=== PATIENT | male | born 1985 | race Caucasian/White ===

== ENCOUNTER 2020-12-03 03:50 | Emergency (ER) | payer OTHER ==
[2020-12-03] MEDS ORDERED: TETRACAINE 0.5% OPHTH DROPS 4 ML EACHEYE ONE (04:07)
--- NOTE | 2020-12-03 04:42 | ED Physician Documentation ---
PD HPI OPHTHO - Stated complaint Stated Complaint: CHEMICAL IN EYE - Chief complaint Chief Complaint: Heent - History obtained from History obtained from: Patient - Additional information Additional information: 35-year-old man presents with right ear irritation after working outdoors today, woodworking and also spraying his plants with citric acid organic pesticide. Patient initially had mild irritation and then went to bed, waking up with pain in the eyes and worsening irritation and redness/puffiness. Denies vision changes, other issues. Review of Systems Constitutional: denies: Fever Eyes: reports: Irritation. denies: Loss of vision Neurologic: denies: Headache PD PAST MEDICAL HISTORY - Past Medical History Past Medical History: Yes GI: GERD - Past Surgical History Past Surgical History: No - Present Medications Home Medications: Ambulatory Orders Medication Instructions Recorded Confirmed Ofloxacin 0.3% Ophth Drops 1 drops EACHEYE Q4H 7 Days #1 12/03/20 [Ocuflox 0.3% Ophth Drops] bottle Omeprazole Magnesium [Prilosec] 2.5 mg PO DAILY 12/03/20 12/03/20 - Allergies Allergies/Adverse Reactions: Allergies Allergy/AdvReac Type Severity Reaction Status Date / Time Penicillins Allergy Unknown Verified 12/03/20 04:00 - Social History Does the pt smoke?: No Smoking Status: Never smoker Does the pt drink ETOH?: No Does the pt have substance abuse?: No - Immunizations Immunizations are current?: Yes - POLST Patient has POLST: No PD ED PE NORMAL - Vitals Vital signs reviewed: Yes - General General: Alert and oriented X 3, No acute distress, Well developed/nourished - HEENT HEENT: Atraumatic, PERRL, EOMI, Other (mild BL conjunctival injection. corneal abrasion on fluorescein testing in 9 oclock position in both eyes. 20/15 BL. small particulate foreign body removed from R lower lid at palpebral fissure) - Neuro Neuro: Alert and oriented X 3 - Psych Psych: Normal mood, Normal affect Results - Vitals Vitals: Vital Signs - 24 hr 12/03/20 12/03/20 04:00 04:05 Temperature 37.1 C 37.1 C Heart Rate 79 79 Respiratory 16 16 Rate Blood Pressure 124/87 H 124/87 H O2 Saturation 100 100 Oxygen O2 Source Room air PD MEDICAL DECISION MAKING - ED course ED course: 35-year-old man presents with eye irritation, with foreign particle evident in the right eye and bilateral corneal abrasions.Antibiotic eyedrops prescribed. Return precautions given. Patient will follow up with his primary doctor. Departure - Departure Disposition: 01 Home, Self Care Clinical Impression: Foreign body in eye, Corneal abrasion, Eye irritation Condition: Good Instructions: ED Eye Injury Corneal Abrasion Prescriptions: Ofloxacin 0.3% Ophth Drops [Ocuflox 0.3% Ophth Drops] 1 drops EACHEYE Q4H 7 Days #1 bottle Comments: You were seen for a scratch in your eyes caused by a foreign particle. Make sure that you wear safety goggles while woodworking and out in your garden. Use your antibiotic eyedrops as prescribed and return to the emergency department if you do not have improvement or have any new or worsening symptoms. Follow-up with your primary doctor.
[2020-12-03 04:48] VITALS: BP 125/72
== END 2020-12-03 04:46 | disposition home or self-care (01) ==
LOC: ED 03:50
DX: S05.02XA Injury of conjunctiva and corneal abrasion without foreign body, left eye, initial encounter (principal); S05.01XA Injury of conjunctiva and corneal abrasion without foreign body, right eye, initial encounter; H02.812 Retained foreign body in right lower eyelid; X58.XXXA Exposure to other specified factors, initial encounter; Y93.H9 Activity, other involving exterior property and land maintenance, building and construction
CPT/HCPCS: 99282; 99283

== ENCOUNTER 2021-08-26 11:48 | Emergency (ER) | payer OTHER ==
[2021-08-26 12:01] VITALS: BP 126/81
--- NOTE | 2021-08-26 12:26 | ED Physician Documentation ---
PD HPI ABD PAIN - Stated complaint Stated Complaint: LEFT SIDE RIB PAIN - Chief complaint Chief Complaint: Back Pain - History obtained from History obtained from: Patient - Additional information Additional information: For a little over a week he has been dealing with left-sided back pain. Radiates from the left flank down to the superolateral left pelvic brim. Its worse with bending and twisting and worse when he raises his left arm over his head. There was no specific injury. He denies urinary complaints or blood in the urine. No radiation to the legs, no weakness, numbness, tingling of the legs or saddle anesthesia. No fevers. He has tried Tylenol without relief. He tries to avoid NSAIDs due to a gastric issue. Review of Systems Constitutional: denies: Fever, Chills Cardiac: denies: Chest pain / pressure, Palpitations Respiratory: denies: Dyspnea, Cough PD PAST MEDICAL HISTORY - Past Medical History GI: GERD - Past Surgical History Past Surgical History: No - Present Medications Home Medications: Ambulatory Orders Medication Instructions Recorded Confirmed Ofloxacin 0.3% Ophth Drops 1 drops EACHEYE Q4H 7 Days #1 12/03/20 [Ocuflox 0.3% Ophth Drops] bottle Omeprazole Magnesium [Prilosec] 2.5 mg PO DAILY 12/03/20 12/03/20 HYDROcod/ACETAM 5/325 [Hudson 5/325] 1 - 2 tab PO Q6H PRN #15 tablet 08/26/21 - Allergies Allergies/Adverse Reactions: Allergies Allergy/AdvReac Type Severity Reaction Status Date / Time Penicillins Allergy Unknown Verified 08/26/21 12:01 - Social History Does the pt smoke?: No Smoking Status: Never smoker Does the pt drink ETOH?: No Does the pt have substance abuse?: No - Immunizations Immunizations are current?: Yes - POLST Patient has POLST: No PD ED PE NORMAL - Vitals Vital signs reviewed: Yes - General General: Alert and oriented X 3, No acute distress - HEENT HEENT: PERRL, EOMI - Neck Neck: Supple, no meningeal sign, No bony TTP - Abdomen Abdomen: Normal bowel sounds, Soft, Non tender - Back Back: Other (He winces with bending and twisting but I am unable to recreate the left flank pain with palpation. No rash.) - Extremities Extremities: No edema, No calf tenderness / cord Results - Vitals Vitals: Vital Signs - 24 hr 08/26/21 11:53 Temperature 36.1 C L Heart Rate 105 H Respiratory 16 Rate Blood Pressure 126/81 H O2 Saturation 98 Oxygen O2 Source Room air - Labs Labs: Laboratory Tests 08/26/21 13:05 Urine Color YELLOW Urine Clarity CLEAR Urine pH 6.5 Ur Specific [place] 1.020 Urine Protein NEGATIVE Urine Glucose (UA) NEGATIVE Urine Ketones NEGATIVE Urine Occult Blood NEGATIVE Urine Nitrite NEGATIVE Urine Bilirubin NEGATIVE Urine Urobilinogen 0.2 (NORMAL) Ur Leukocyte Esterase NEGATIVE Ur Microscopic Review NOT INDICATED Urine Culture Comments NOT INDICATED PD MEDICAL DECISION MAKING - ED course ED course: He presents with back pain that seems muscular. That said it is over the kidney, but the association with movements would suggest against renal colic. A urinalysis was done negative for hematuria or other findings. As such will be treated for simple noncomplicated low back pain. I am prescribing a short course of short-acting opioid pain medication for this patient. I have reviewed the patients [employer] and no concerning findings were noted. I have discussed that the opioids are for short term therapy only, and will not be refilled from the ED. Departure - Departure Disposition: Home, Self Care Clinical Impression: Back pain Qualifiers: Back pain location: low back pain Chronicity: acute Back pain laterality: left Sciatica presence: without sciatica Qualified Code(s): M54.50 - Low back pain, unspecified Condition: Good Record reviewed to determine appropriate education?: Yes Instructions: ED Low Back Pain Injury Prescriptions: HYDROcod/ACETAM 5/325 [Hudson 5/325] 1 - 2 tab PO Q6H PRN #15 tablet PRN Reason: Pain Comments: [facility] in [place]. Return for new or worsening symptoms. Follow-up with your physician this coming week for recheck. I am prescribing a short course of narcotic pain medication for you. These are potentially dangerous and addictive medications that should be used carefully. These medications may constipate you. Take an [id number] stool softener (docusate) twice daily with plenty of water while taking these medications. If you go 24 hours without a bowel movement, take [id number] miralax, per package instructions. Do not drink or drive while taking these medications. If you received narcotic or sedating medications while in the emergency department, do not drive for 24 hours. Store this medication in a safe, secure place and out of reach of children. It is a violation of federal law to give or sell this medication to another person or to use in a manner other than prescribed. The ED will not refill narcotic prescriptions, including prescriptions lost or stolen. To dispose of unwanted medications: 1. [facility] at [address] in [place] has a medication drop box. They accept prescription medications (in pill form) Friday through Friday 9:00 a.m. to 5:00 p.m. 2. [facility] accepts prescription medications (in pill form only) for disposal year round. Call for more information. 3. Contact the [facility] for the next [facility] sponsored prescription drug collection event. , [phone], or [phone]; Note that many narcotic pain relievers also contain Tylenol/acetaminophen. Please ensure that your total dose of acetaminophen from all sources does not exceed 3 g (3000 mg) per day.
[2021-08-26 13:08] LABS: BILIRUBIN,URINE NEGATIVE (NEGATIVE); GLUCOSE, URINE (UA) NEGATIVE (NEGATIVE); KETONES,URINE (UA) NEGATIVE (NEGATIVE); LEUKOCYTE ESTERASE, URINE NEGATIVE (NEGATIVE); NITRITE,URINE NEGATIVE (NEGATIVE); OCCULT BLOOD,URINE NEGATIVE (NEGATIVE); PH,URINE 6.5 PH (5.0-7.5); PROTEIN,URINE NEGATIVE (NEGATIVE); UROBILINOGEN,URINE 0.2 (NORMAL) E.U./dL (NORMAL)
[2021-08-26 13:16] LABS: CLARITY,URINE CLEAR (CLEAR)
== END 2021-08-26 13:28 | disposition home or self-care (01) ==
LOC: ED 11:48
DX: M54.50 Low back pain, unspecified (principal); K21.9 Gastro-esophageal reflux disease without esophagitis
CPT/HCPCS: 81001; 81003; 87086; 99283